=== PATIENT | female | born 1980 | race Two or more races ===

== ENCOUNTER 2024-09-26 06:31 | Day surgery (SDC) | payer OTHER ==
[2024-09-25 09:14] LABS: BASO % 0.9 % (0.1-1.2); EOS # 0.21 (0.04-0.54); EOS % 4.6 % (0.7-7.0); HEMATOCRIT 37.7 % (34.1-44.9); HEMOGLOBIN 11.9 g/dL (11.2-15.7); LYMPH # 0.76 (1.18-3.74); LYMPH % 16.5 % (19.3-53.1); MEAN CORPUSCULAR HEMOGLOBIN 25.2 pg (25.6-32.2); MONO # 0.43 (0.24-0.82); MONO % 9.3 % (4.7-12.5); NEUT # 3.16 (1.56-6.13); NEUT % 68.5 % (34.0-71.1); PLATELET COUNT 298 K/uL (163-369); RED BLOOD COUNT 4.73 M/uL (3.93-5.22); RED CELL DISTRIBUTION WIDTH 14.8 % (11.6-14.4)
[2024-09-25 09:51] LABS: COVID-19 AG NEGATIVE (NEGATIVE)
[2024-09-25 10:01] LABS: ALBUMIN 3.8 gm/dL (3.4-5.0); BILIRUBIN TOTAL 0.35 mg/dL (0.3-1.2); CALCIUM 9.5 mg/dL (8.5-10.1); CREATININE SERUM 0.7 mg/dL (0.55-1.02); GFR 90.08; GLOBULINA 3.1 G/DL (2.4-3.5); POTASSIUM 4.34 mEq/L (3.5-5.1); TOTAL PROTEIN 6.9 gm/dL (6.4-8.2)
[2024-09-25 10:02] LABS: INR 0.97; PARTIAL THROMBOPLASTIN TIME 27.1 SECONDS (22.0-34.0); PROTHROMBIN TIME 10.6 SECONDS (9.0-11.5)
[2024-09-25 11:00] LABS: URINE APPEARANCE Cloudy; URINE BILIRRUBIN Negative (NEGATIVE); URINE BLOOD Negative; URINE COLOR Yellow; URINE GLUCOSE Negative (NEGATIVE); URINE KETONE Negative (NEGATIVE); URINE LEUKOCYTE Negative; URINE NITRATE Negative; URINE PROTEIN Negative (NEGATIVE); URINE UROBILINOGEN 0.2 E.U./dl
[2024-09-25 11:03] LABS: URINE BACTERIA 1609.4 uL (0.0-1933); URINE EPITHELIAL CELLS 127.7 uL (0.0-38.8); URINE RBC 6.9 uL (0.0-20.8); URINE WBC 69.8 uL (0.0-23.2)
[2024-09-25 11:24] LABS: URINE CAST 0.73 uL (0.0-1.40)
[2024-09-25 11:33] VITALS: BP 113/76
[~2024-09-26] VITALS: Ht 170.2 cm; Wt 89.4 kg
[2024-09-26] MEDS ORDERED: POVIDONE-IODINE 118 ML BOTT TOP SCH (14:15)
[2024-09-26] MEDS ORDERED: VANCOMYCIN HCL 1,000 MG VIAL IR SCH (14:15)
[2024-09-26] MEDS ORDERED: CLINDAMYCIN PHOSPHATE 150 MG/ML (900mg) IV SCH (14:15)
[2024-09-26] MEDS ORDERED: POVIDONE-IODINE SCRUB 118 ML BOTT TOP SCH (14:15)
[2024-09-26] MEDS ORDERED: GENTAMICIN SULFATE 40 MG/ML VIAL IR SCH (14:15)
[2024-09-26] MEDS ORDERED: CEFAZOLIN SODIUM 1,000 MG VIAL IJ SCH (14:15)
[2024-09-26] MEDS ORDERED: MORPHINE SULFATE 4 MG/ML VIAL IV ONE (18:30)
== END 2024-09-26 20:00 | disposition home or self-care (01) ==
LOC: CIR.AMB 06:31
PROVIDERS: ATTEND Surgery
DX: C50.412 Malignant neoplasm of upper-outer quadrant of left female breast (principal); C77.3 Secondary and unspecified malignant neoplasm of axilla and upper limb lymph nodes; D48.61 Neoplasm of uncertain behavior of right breast; N65.1 Disproportion of reconstructed breast; Z80.3 Family history of malignant neoplasm of breast; Z15.01 Genetic susceptibility to malignant neoplasm of breast; Z90.13 Acquired absence of bilateral breasts and nipples; R92.1 Mammographic calcification found on diagnostic imaging of breast; D48.62 Neoplasm of uncertain behavior of left breast; N60.81 Other benign mammary dysplasias of right breast; N60.82 Other benign mammary dysplasias of left breast; Z88.2 Allergy status to sulfonamides; Z88.6 Allergy status to analgesic agent

== ENCOUNTER 2024-12-19 05:20 | Day surgery (SDC) | payer OTHER ==
[2024-12-17 11:12] VITALS: BP 115/79
[~2024-12-19] VITALS: Ht 170.2 cm; Wt 89.8 kg
[~2024-12-19 05:20] MED LIST: ANASTROZOLE1 MG PO; ELIGARD7.5 MG
[2024-12-19] MEDS ORDERED: CLINDAMYCIN PHOSPHATE 150 MG/ML (900mg) ONE (07:24)
[2024-12-19] MEDS ORDERED: GENTAMICIN SULFATE 40 MG/ML VIAL ONE (07:32)
[2024-12-19] MEDS ORDERED: VANCOMYCIN HCL 1,000 MG VIAL ONE (07:32)
[2024-12-19] MEDS ORDERED: CEFAZOLIN SODIUM 1,000 MG VIAL ONE (07:32)
[2024-12-19] MEDS ORDERED: POVIDONE-IODINE 118 ML BOTT TOP ONE (07:33)
[2024-12-19] MEDS ORDERED: POVIDONE-IODINE SCRUB 118 ML BOTT TOP ONE (08:24)
[2024-12-19] MEDS ORDERED: SUGAMMADEX SODIUM 200 MG/2 ML VIAL IV ONE (09:42)
[2024-12-19] MEDS ORDERED: ONDANSETRON HCL 2 MG/ML VIAL IV PRN (10:15)
[2024-12-19] MEDS ORDERED: MORPHINE SULFATE 4 MG/ML VIAL IV PRN (10:15)
[2024-12-19] MEDS ORDERED: MORPHINE SULFATE 4 MG/ML VIAL IV ONE ×2 (10:45→11:15)
== END 2024-12-19 12:05 | disposition home or self-care (01) ==
LOC: CIR.AMB 05:20
PROVIDERS: ATTEND Plastic Surgery
DX: N65.1 Disproportion of reconstructed breast (principal); C50.412 Malignant neoplasm of upper-outer quadrant of left female breast; Z90.13 Acquired absence of bilateral breasts and nipples; D48.61 Neoplasm of uncertain behavior of right breast; Z88.2 Allergy status to sulfonamides; Z88.6 Allergy status to analgesic agent